=== PATIENT | female | born 1950 | race African-American/Black ===

== ENCOUNTER 2018-08-11 14:34 | Emergency (ER) | payer SELFPAY, OTHER ==
[2018-08-11] MEDS: LIDOCAINE 1% (MPF) 5 ML VIAL INFIL (15:49)
[2018-08-11] MEDS: ACETAMINOPHEN 325 MG TAB PO (15:49)
== END 2018-08-11 16:16 | disposition home or self-care (01) ==
LOC: FTE 14:34
DX: R22.2 Localized swelling, mass and lump, trunk (principal)
CPT/HCPCS: 99282